=== PATIENT | male | born 1990 | race Caucasian/White ===

== ENCOUNTER 2020-08-10 06:25 | Emergency (ER) | payer MEDICAID, SELFPAY ==
[2020-08-10 07:46] VITALS: BP 125/71; PULSE 71; RESP 18; TEMP 36.6; O2SAT 99; BMI 20.7
--- NOTE | 2020-08-10 08:03 | ED_ITS ---
HPI - Alcohol General Chief Complaint: ETOH/Substance Use Stated Complaint: withdrawals Time Seen by Provider: 08/10/20 08:02 Source: patient Mode of arrival: ambulatory Limitations: no limitations History of Present Illness HPI narrative: Patient been addicted to Percocet 20 mg 3- 4 tablets a day for about 1 year last time it took a tablet was yesterday since evening he been nauseated having chills sweating vomiting patient denied use of any other substance never been to detox before requesting to go to detox patient denied any fever or cough or shortness of breath Related Data Previous Rx's Medication Instructions Recorded clonidine HCl 0.2 mg PO Q8H PRN #8 tab 08/10/20 lorazepam [Ativan] 1 mg PO TID PRN #10 tab 08/10/20 Allergies Allergy/AdvReac Type Severity Reaction Status Date / Time No Known Allergies Allergy Unverified 04/03/20 19:48 [No Known Allergies*] Review of Systems Review of Systems: Constitutional : No Weight loss, No Fever,++Chills ENT/Mouth : No sore throat, No Rhinorrhea Eyes: No Eye Pain, No Swelling Cardiovascular : No Chest Pain, no palpitations Respiratory : No Cough, No Sputum, no shortness of breath Gastrointestinal : ++ Nausea, ++ Vomiting, No Diarrhea, No abdominal Pain, no black stools Genitourinary : No Dysuria, No Urinary Frequency Musculoskeletal : No joint pain, No Myalgias, No Joint Swelling Skin : No Skin Lesions, No rash Neuro : No Weakness, No Numbness, No Dizziness, No Headache Psych : No Anxiety/Panic, No Depression Heme/Lymph: No Bruising, No Lymphadenopathy Endocrine : No Polyuria, No Polydipsia All other systems reviewed and are negative Yes all other systems are reviewed and are negative [facility] Past Medical History Medical History No known health problems Social History Social History Advance Directives: No Advance Directives Information Provided: No Physical Exam Vital Signs: Vital Signs: Last Vital Signs Temp 98 F 08/10/20 07:46 Pulse 76 08/10/20 14:34 Resp 16 08/10/20 14:34 BP 116/72 08/10/20 14:34 Pulse Ox 98 08/10/20 14:34 Body Mass Index 20.7 Appearance: Alert. Oriented X3. In mild distress. Eyes: Pupils equal, round and reactive to light. ENT: Pharynx normal. Neck: Normal inspection. Neck supple. CVS: Normal heart rate and rhythm. Pulses normal. Respiratory: No respiratory distress. Breath sounds normal. Abdomen: Soft and nontender. Bowel sounds are present, no mass palpable, no CVA tenderness Skin: Skin warm and dry. Normal skin color. Normal skin turgor. Extremities: No lower extremity edema. Neuro: Oriented X 3. No motor deficit. No sensory deficit. Course Course Course Narrative: Patient seen by care team advised to follow-up with detox as outpatient patient preferred to go home will call from home patient feel depressed but denies any suicidal ideation and feels safe to go home with family MDM - Alcohol Lab Data Attestation: I reviewed the patient's lab results. Labs: Lab Results 08/10/20 08/10/20 Range/Units 08:24 08:50 Urine Opiates Screen POSITIVE H (Not Detect) Ur Barbiturates Screen Not Detected (Not Detect) Ur Phencyclidine Scrn Not Detected (Not Detect) Ur Amphetamines Screen Not Detected (Not Detect) U Benzodiazepines Scrn Not Detected (Not Detect) Urine Cocaine Screen Not Detected (Not Detect) U Marijuana (THC) Screen POSITIVE H (Not Detect) COVID-19 (YARELY) Negative (Negative) COVID-19 Clin Com See Note Discharge Plan Discharge Clinical Impression: Opiate dependence Qualifiers: Substance use status: in withdrawal Qualified Code(s): F11.23 - Opioid dependence with withdrawal Patient Disposition: Home, Self-Care Instructions: Narcotic Withdrawal (ED), Narcotic Use Disorder (ED) Additional Instructions: Stop using Percocet/opiates. Take Ativan for anxiety and withdrawal symptoms also started on clonidine for 2 days for withdrawal Follow-up with detox as advised Prescriptions: New lorazepam [Ativan] 1 mg tablet 1 mg PO TID PRN (Reason: anxiety) Qty: 10 RF: 0 clonidine HCl 0.2 mg tablet 0.2 mg PO Q8H PRN (Reason: opiate withrawl) Qty: 8 RF: 0
[2020-08-10 08:10] VITALS: BP 128/72
[2020-08-10] MEDS: LORazepam 1 MG TABLET 2 MG PO ×2 (08:10→14:41)
[2020-08-10] MEDS: cloNIDine HCL 0.2 MG TABLET PO (08:10)
[2020-08-10 08:55] LABS: COVID-19 Test Negative (Negative)
[2020-08-10 09:34] LABS: Amphetamine Screen Urine Not Detected (Not Detect); Barbiturates, Urine Not Detected (Not Detect); Benzodiazepines Screen Urine Not Detected (Not Detect); Cannabinoid Screen Urine POSITIVE (Not Detect); Cocaine Screen Urine Not Detected (Not Detect); Opiate Screen Urine POSITIVE (Not Detect); Phencyclidine Screen Urine Not Detected (Not Detect)
[2020-08-10 10:23] VITALS: BP 119/70; PULSE 60; RESP 16; O2SAT 98
--- NOTE | 2020-08-10 11:05 | MHC.CARE ---
CARE Team provided Linnea with information regard detox and services provided in the community for substances abuse services. He mentioned he is not seeking help now, he was provided with the list of services for future reference.
[2020-08-10 14:34] VITALS: BP 116/72; PULSE 76; RESP 16; O2SAT 98
== END 2020-08-10 15:24 | disposition home or self-care (01) ==
PROVIDERS: Emergency Provider Internal Medicine
DX: F11.23 Opioid dependence with withdrawal (principal); F10.10 Alcohol abuse, uncomplicated; Y90.9 Presence of alcohol in blood, level not specified; Z79.899 Other long term (current) drug therapy; Z20.822 Contact with and (suspected) exposure to COVID-19
CPT/HCPCS: 36415; 80307; 87635; 99284

== ENCOUNTER 2020-08-30 17:33 | Emergency (ER) | payer MEDICAID, SELFPAY ==
[2020-08-30 17:53] VITALS: BP 116/68; PULSE 82; RESP 16; TEMP 36.9; O2SAT 96; BMI 25.0
--- NOTE | 2020-08-30 18:12 | ED.PSYCH ---
HPI - Psych General Chief Complaint: Psychiatric Symptoms Stated Complaint: si Time Seen by Provider: 08/30/20 18:09 Source: patient Mode of arrival: ambulatory Limitations: no limitations History of Present Illness HPI Narrative: 30-year-old male presents for substance abuse. Actively withdrawing, is requesting detox. States that he has been trying to get clean for several weeks however his withdrawal symptoms are so severe that he cannot function. When he is feeling his worst he feels suicidal but does not have a plan. He has been using heroin and Percocets on a regular basis. MD complaint: substance abuse Onset (ago): week(s) Duration: constant History of same: Yes Relieving factors: none Context: recent drug abuse Associated psychiatric symptoms: depression Associated symptoms: denies other symptoms Treatments prior to arrival: none Related Data Previous Rx's Medication Instructions Recorded clonidine HCl 0.2 mg PO Q8H PRN #8 tab 08/10/20 lorazepam [Ativan] 1 mg PO TID PRN #10 tab 08/10/20 Allergies Allergy/AdvReac Type Severity Reaction Status Date / Time No Known Allergies Allergy Unverified 04/03/20 19:48 [No Known Allergies*] Review of Systems Review of Systems: Constitutional: No Fever, positive Chills ENT/Mouth: No sore throat, No Rhinorrhea Eyes: No Eye Pain, No Swelling, No Redness Cardiovascular: No Chest Pain, No SOB Respiratory: No Cough, No Sputum Gastrointestinal: Positive Nausea, No Vomiting, No Diarrhea, positive abdominal Pain : No Dysuria, No Hematuria Musculoskeletal: No joint pain, No Myalgias, No Joint Swelling Skin: No Skin Lesions, No rash Neuro: No Weakness, No Numbness, No Loss of Consciousness, No Dizziness, No Headache Psych: Positive Anxiety, positive Depression, positive substance abuse, No SI/HI/AH/VH Heme/Lymph: No Bruising, No Bleeding,No Lymphadenopathy Endocrine: No Polyuria, No Polydipsia PMFSH Past Medical History Attestation statement: The following information was validated with the patient. Source: old records reviewed Medical History No known health problems Social History Social History Smoked in Last 30 Days: No Use of substances other than those prescribed or required for medical reasons: Yes Substance Use Type: Heroin Advance Directives: No Advance Directives Information Provided: Yes Physical Exam Vital Signs: Vital Signs: Last Vital Signs Temp 97.6 F 08/30/20 22:08 Pulse 78 08/30/20 22:08 Resp 16 08/30/20 23:53 BP 101/68 08/30/20 22:08 Pulse Ox 97 08/30/20 22:08 Body Mass Index 25.0 Appearance: Alert. Oriented X3. Moderate distress secondary to withdrawal symptoms. Eyes: Pupils equal, round and reactive to light. ENT: Pharynx normal. Neck: Normal inspection. Neck supple. CVS: Normal heart rate and rhythm. Pulses normal. Respiratory: No respiratory distress. Breath sounds normal. Abdomen: Soft and nontender. Skin: Skin warm and dry. Normal skin color. Normal skin turgor. Extremities: No lower extremity edema. Neuro: No motor deficit. No sensory deficit. Course Course Course Narrative: 30-year-old male presents with active withdrawal symptoms from heroin and Percocet. States that he has been trying to get clean for several weeks however his withdrawal symptoms are so severe that at their worst they make him feel like he wants to . He does not describe a true suicidal ideation, but states his symptoms are so severe that he needs help. Patient is tremors, states to have abdominal pain, is moaning, and is experiencing severe withdrawal symptoms. I do not feel that patient suicidal statement is accurate, but directly related to the suffering of severe withdrawals. Patient is compliant with care, giving blood and urine samples without difficulty, answering all questions with appropriate responses. cross country/track and field coach at bedside, plan is for detox. Patient to be discharged to detox at 2:00 a.m.. Family will be driving him. Patient verbalized understanding of and agrees plan of care discharge to detox facility. MDM - Psych Differential Diagnosis Differential diagnosis: Likely depression, acute anxiety and substance abuse Medical Records Attestation: I reviewed the patient's medical records. Lab Data Attestation: I reviewed the patient's lab results. Result diagrams: 08/30/20 18:26 08/30/20 18:26 Labs: Lab Results 08/30/20 08/30/20 08/30/20 Range/Units 18:26 18:26 18:26 WBC 8.9 (4.8-10.8) X10*3/uL RBC 5.03 (4.60-5.80) X10*6/uL Hgb 14.7 (14.0-18.0) g/dl Hct 44.6 (42-52) % MCV 88.7 (80-98) fL MCH 29.2 (27.0-33.0) pg MCHC 33.0 (31.0-36.0) g/dl RDW 13.2 (11.0-16.0) % Plt Count 201 (160-400) X10*3/uL MPV 10.8 (9.4-12.4) fL Immature Gran % (Auto) 0.2 (0.0-0.4) % Neut % (Auto) 68.7 (45-73) % Lymph % (Auto) 17.9 L (20-40) % [place] % (Auto) 9.2 (2-11) % Eos % (Auto) 3.4 (0-4) % Baso % (Auto) 0.6 (0-2) % Lymph # (Auto) 1.6 (1.2-4.9) X10*3/uL [place] # (Auto) 0.8 (0.1-1.2) X10*3/uL Eos # (Auto) 0.3 (0.0-0.4) X10*3/uL Baso # (Auto) 0.1 (0.0-0.2) X10*3/uL Abs Immat Gran (auto) 0.02 (0.00-0.03) X10*3/uL Absolute Neuts (auto) 6.1 (2.0-8.3) X10*3/uL Absolute Nucleated RBC 0.000 (0.0-0.012) X10*3/uL Nucleated RBC % (auto) 0.0 (0.0-0.2) /100WBC Sodium 140 (135-145) mmol/L Potassium 4.1 (3.3-5.1) mmol/L Chloride 105 (96-108) mmol/L Carbon Dioxide 26 (22-29) mmol/L Anion Gap 13 (12-20) BUN 10 (9-16) mg/dL Creatinine 0.95 (0.5-1.4) mg/dL Estim Creat Clear Calc 98.9 Estimated GFR > 60 Random Glucose 92 (60-115) mg/dL Calcium 9.5 (8.4-10.2) mg/dL Urine Opiates Screen POSITIVE H (Not Detect) Ur Barbiturates Screen Not Detected (Not Detect) Ur Phencyclidine Scrn Not Detected (Not Detect) Ur Amphetamines Screen Not Detected (Not Detect) U Benzodiazepines Scrn Not Detected (Not Detect) Urine Cocaine Screen Not Detected (Not Detect) U Marijuana (THC) Screen POSITIVE H (Not Detect) Ethyl Alcohol mg/dL Coronavirus (PCR) (Negative) Influenza Type A (PCR) (Negative) Influenza Type B (PCR) (Negative) RSV RNA Qual (PCR) (Negative) 08/30/20 08/30/20 Range/Units 18:26 18:26 WBC (4.8-10.8) X10*3/uL RBC (4.60-5.80) X10*6/uL Hgb (14.0-18.0) g/dl Hct (42-52) % MCV (80-98) fL MCH (27.0-33.0) pg MCHC (31.0-36.0) g/dl RDW (11.0-16.0) % Plt Count (160-400) X10*3/uL MPV (9.4-12.4) fL Immature Gran % (Auto) (0.0-0.4) % Neut % (Auto) (45-73) % Lymph % (Auto) (20-40) % [place] % (Auto) (2-11) % Eos % (Auto) (0-4) % Baso % (Auto) (0-2) % Lymph # (Auto) (1.2-4.9) X10*3/uL [place] # (Auto) (0.1-1.2) X10*3/uL Eos # (Auto) (0.0-0.4) X10*3/uL Baso # (Auto) (0.0-0.2) X10*3/uL Abs Immat Gran (auto) (0.00-0.03) X10*3/uL Absolute Neuts (auto) (2.0-8.3) X10*3/uL Absolute Nucleated RBC (0.0-0.012) X10*3/uL Nucleated RBC % (auto) (0.0-0.2) /100WBC Sodium (135-145) mmol/L Potassium (3.3-5.1) mmol/L Chloride (96-108) mmol/L Carbon Dioxide (22-29) mmol/L Anion Gap (12-20) BUN (9-16) mg/dL Creatinine (0.5-1.4) mg/dL Estim Creat Clear Calc Estimated GFR Random Glucose (60-115) mg/dL Calcium (8.4-10.2) mg/dL Urine Opiates Screen (Not Detect) Ur Barbiturates Screen (Not Detect) Ur Phencyclidine Scrn (Not Detect) Ur Amphetamines Screen (Not Detect) U Benzodiazepines Scrn (Not Detect) Urine Cocaine Screen (Not Detect) U Marijuana (THC) Screen (Not Detect) Ethyl Alcohol < 10 mg/dL Coronavirus (PCR) NEGATIVE (Negative) Influenza Type A (PCR) NEGATIVE (Negative) Influenza Type B (PCR) NEGATIVE (Negative) RSV RNA Qual (PCR) NEGATIVE (Negative) Discharge Plan Discharge Clinical Impression: Substance abuse withdrawal Qualifiers: Complication of substance-induced condition: uncomplicated Qualified Code(s): F19.130 - Other psychoactive substance abuse with withdrawal, uncomplicated Patient Disposition: Home, Self-Care Instructions: Opioid Withdrawal (ED), Opioid Use Disorder (ED) Additional Instructions: You are being discharged to detox. Thank you for choosing this emergency department for evaluation. Please follow-up with primary care physician as needed. Return to the emergency department for any new, concerning, or worsening symptoms. Prescriptions: No Action lorazepam [Ativan] 1 mg tablet 1 mg PO TID PRN (Reason: anxiety) Qty: 10 RF: 0 clonidine HCl 0.2 mg tablet 0.2 mg PO Q8H PRN (Reason: opiate withrawl) Qty: 8 RF: 0
[2020-08-30] MEDS: cloNIDine HCL 0.1 MG TABLET PO (18:26)
[2020-08-30] MEDS: Dicyclomine HCl 10 MG CAPSULE 20 MG PO (18:26)
[2020-08-30] MEDS: LORazepam 1 MG TABLET PO (18:26)
[2020-08-30 18:38] LABS: Basophils Absolute Auto 0.1 X10*3/uL (0.0-0.2); Basophils Percent Auto 0.6 % (0-2); Eosinophils Absolute Auto 0.3 X10*3/uL (0.0-0.4); Eosinophils Percent Auto 3.4 % (0-4); Hematocrit 44.6 % (42-52); Hemoglobin 14.7 g/dl (14.0-18.0); Imm Gran Abs Auto 0.02 X10*3/uL (0.00-0.03); Imm Gran Pct Auto 0.2 % (0.0-0.4); Lymphocytes Absolute Auto 1.6 X10*3/uL (1.2-4.9); Lymphocytes Percent Auto 17.9 % (20-40); MANUAL DIFF FLAG NO; Mean Corpuscular Hemoglobin 29.2 pg (27.0-33.0); Mean Corpuscular Volume 88.7 fL (80-98); Mean Platelet Volume 10.8 fL (9.4-12.4); Monocytes Absolute Auto 0.8 X10*3/uL (0.1-1.2); Monocytes Percent Auto 9.2 % (2-11); Neutrophils Absolute Auto 6.1 X10*3/uL (2.0-8.3); Neutrophils Percent Auto 68.7 % (45-73); Platelet Count 201 X10*3/uL (160-400); Red Blood Count 5.03 X10*6/uL (4.60-5.80); Red Cell Distribution Width 13.2 % (11.0-16.0); White Blood Count 8.9 X10*3/uL (4.8-10.8)
--- NOTE | 2020-08-30 18:45 | MHC.RECOVSUP ---
Acute opiate wthdrawal o Current location: [facility] o Identified substance use concern: - Withdrawal - Seeking ATS (detox) - Support ? Intervention: o ATS bed search completed/ ? Plan: o Bed search in progress to [facility] ? Additional information: I was able to speak with pt and he was visibly in withdrawal pain. he requested to go to detox and is willing to go if a bed was available. I made a phone call to [facility] and there was a bed available for 2am to which pt stated that he would be willing to go.I was able to make the nurse aware and all that is needed at this time would be to fax over his vitals and he will be ready to go.
[2020-08-30 18:56] LABS: Ethanol < 10 mg/dL
[2020-08-30 18:57] LABS: Anion Gap 13 (12-20); Blood Urea Nitrogen 10 mg/dL (9-16); Calcium 9.5 mg/dL (8.4-10.2); Carbon Dioxide 26 mmol/L (22-29); Chloride 105 mmol/L (96-108); Creatinine Clr Calc Pharmacy 98.9; Estimated Glomerular Filt Rate > 60; Glucose Random 92 mg/dL (60-115); Potassium 4.1 mmol/L (3.3-5.1); Sodium 140 mmol/L (135-145)
[2020-08-30 19:10] LABS: Amphetamine Screen Urine Not Detected (Not Detect); Barbiturates, Urine Not Detected (Not Detect); Benzodiazepines Screen Urine Not Detected (Not Detect); Cannabinoid Screen Urine POSITIVE (Not Detect); Cocaine Screen Urine Not Detected (Not Detect); Opiate Screen Urine POSITIVE (Not Detect); Phencyclidine Screen Urine Not Detected (Not Detect)
[2020-08-30 19:41] LABS: Influenza A PCR NEGATIVE (Negative); Influenza B PCR NEGATIVE (Negative); Resp Syncy Virus RNA Qual PCR NEGATIVE (Negative); SARS COV2 PCR INHOUSE NEGATIVE (Negative)
[2020-08-30 20:07] VITALS: BP 95/67; PULSE 75; RESP 18; TEMP 36.9; O2SAT 95
--- NOTE | 2020-08-30 20:16 | MHC.RECOVSUP ---
Accepted for detox I was able to fax all documents to [facility] pertaining to pt. I recieved a call back informing that the bed will be available for him for 2am. pt is currently sleeping. he stated that he would have a family member take him for 2am. ? Additional information:
--- NOTE | 2020-08-30 20:58 | PC.NURSE ---
pt asleep at current, no signs of distress, respirations even and unlabored
[2020-08-30 22:08] VITALS: BP 101/68; PULSE 78; RESP 14; TEMP 36.4; O2SAT 97
--- NOTE | 2020-08-30 22:45 | PC.NURSE ---
Pt asleep at current. No signs of distress. Respirations even and unlabored.
--- NOTE | 2020-08-30 23:20 | PC.NURSE ---
This RN resuming care, pt sleeping in bed at this time. Per previous RN, plan to DC to detox @ 0200. Sitter at bedside, contine to monitor.
[2020-08-30 23:30] VITALS: RESP 16
[2020-08-30 23:53] VITALS: RESP 16
[2020-08-31 01:22] VITALS: BP 106/67; PULSE 82; RESP 16
--- NOTE | 2020-08-31 01:24 | PC.NURSE ---
Pt wakes easily to verbal stimuli. Pt provided with clothes from the pod, pt changing in the bathroom. VSS at this time. Pt resting in bed, awaiting ride to detox, states his girlfriend is arriving @ 0130.
--- NOTE | 2020-08-31 01:37 | PC.NURSE ---
This RN calling pts girlfriend Keely, Per pt, she was supposed to arrive @ 0130 for transport to detox by 2 am. Girlfriend not answering phone, this RN leaving a voicemail.
--- NOTE | 2020-08-31 01:50 | PC.NURSE ---
Pt requesting to be medicated with Clonidine and Ativan for body aches due to withdrawal prior to transport to [facility]. Pt denies FABIAN, tremors, N/V, abdominal pain at this time. This RN discussing with MD medicating pt. MD reports due to minimal complaints and low COWS score, to wait until admission at [facility] so they can begin treatment via their protocol. Pt aware and agreeable to plan, awaiting ride to [facility].
== END 2020-08-31 01:57 | disposition home or self-care (01) ==
PROVIDERS: Nurse Practitioner Family; Emergency Provider Emergency Medicine
DX: F11.13 Opioid abuse with withdrawal (principal); F19.130 Other psychoactive substance abuse with withdrawal, uncomplicated; Z20.822 Contact with and (suspected) exposure to COVID-19; F32.9 Major depressive disorder, single episode, unspecified; F41.9 Anxiety disorder, unspecified
CPT/HCPCS: 0241U; 36415; 80048; 80307; 80320; 85025; 99284; 99285

== ENCOUNTER 2021-08-31 15:33 | Emergency (ER) | payer MEDICAID, SELFPAY ==
--- NOTE | ~2021-08-31 | XR_ITS ---
EXAMINATION: XR CHEST CLINICAL INFORMATION: Lung pain COMPARISON: None TECHNIQUE: Frontal view of the chest was obtained. FINDINGS: No significant abnormality is noted involving the heart, lungs, mediastinum, bony thorax or soft tissues. XR/XR chest 1V IMPRESSION: Unremarkable examination.
[2021-08-31 15:45] VITALS: BP 123/83; PULSE 84; RESP 14; TEMP 36.8; O2SAT 99; BMI 25.0
--- NOTE | 2021-08-31 16:08 | ED.GENADULT ---
HPI - General Adult General Chief complaint: Dyspnea Stated complaint: congested Time Seen by Provider: 08/31/21 15:57 Source: patient Mode of arrival: ambulatory Limitations: no limitations History of Present Illness HPI narrative: 31-year-old male presents to the ED for nasal congestion/sinus pain for one week. patient denies any chest pain, lung pain, shortnss of breath, coughing, sore throat, facial trauma, neck stiffness, leg swelling, calf pain, or nasal discharge. Related Data Previous Rx's Medication Instructions Recorded clonidine HCl 0.2 mg tablet 0.2 mg PO Q8H PRN #8 tab 08/10/20 lorazepam 1 mg tablet (Ativan) 1 mg PO TID PRN #10 tab 08/10/20 amoxicillin 875 mg-potassium 1 tab PO Q12H 10 Days #20 tab 08/31/21 clavulanate 125 mg tablet naproxen 500 mg tablet 500 mg PO BID PRN 10 Days #20 tab 08/31/21 triamcinolone acetonide 55 mcg 2 spray INTRANASAL DAILY 7 Days 08/31/21 nasal spray aerosol (Nasacort) #16.9 ml Allergies Allergy/AdvReac Type Severity Reaction Status Date / Time No Known Allergies Allergy Unverified 04/03/20 19:48 [No Known Allergies*] Review of Systems Review of Systems: nasal congestion and sinus maxillary tenderness Yes all other systems are reviewed and are negative [facility] Past Medical History Medical History No known health problems Social History Social History Substance Use Type: Heroin Advance Directives: No Advance Directives Information Provided: No Physical Exam ED Vital Signs: Vital Signs - 24 hr 08/31/21 15:45 Temperature 98.2 F Pulse Rate 84 Respiratory Rate 14 Blood Pressure 123/83 Pulse Oximetry 99 BMI result Body Mass Index 25.0 Const General: cooperative, healthy appearing, comfortable, no acute distress, well developed, alert, awake and Physically active Orientation/consciousness: patient oriented x3 HENMT Head: Yes normal to inspection, Yes No palpable skull fracture present, Yes normocephalic, Yes atraumatic and No abrasion Face and sinus: Yes sinus tenderness Face images: 1. Sinus tenderness on palpation. Negative for ecchymosis or erythema. Negative for crepitus 2. Sinus tenderness on palpation. Negative for ecchymosis or erythema. Negative for crepitus Eyes General: appearance normal, both eyes and all related structures Neck Neck: Yes normal visual inspection, Yes full ROM, Yes no lymphadenopathy, Yes no meningeal signs, Yes trachea midline, Yes supple, No anterior neck swelling and No tender Chest Chest palpation & inspection: normal inspection of the chest and normal palpation of entire chest wall Resp Effort & Inspection: normal respiratory effort and able to speak in complete sentences Auscultation: clear to auscultation bilaterally Cardio Jugular venous distension: no JVD Heart sounds: S1 normal heart sound present and S2 normal heart sound present GI Inspection: Yes normal to inspection and No abdominal wall ecchymosis Palpation (GI): Soft to palpation, not firm, nontender, no guarding and not rigid General: No CVA tenderness and Yes no CVA tenderness Back/Spine/Pelvis Back: no CVA tenderness, No CVA tenderness and No back tenderness Skin General skin exam: no rashes or lesions noted and elasticity normal Neuro General: patient oriented x3, gait normal, no meningeal signs and CN's II-XI intact bilaterally Cranial nerves: Yes CN's II-XII intact bilaterally Extrem General: Yes normal to inspection and Yes full ROM Psych Appearance: grossly normal, well kempt and not disheveled Course Course Course Narrative: History physical exam indicates sinusitis. Recommend to screen was done and patient had COVID swab and chest x-ray ordered. Reevaluation(s) Reevaluation #1: Patient to be sure with Nasacort. Chest x-ray normal. Negative for any active discharge in nares. Time: 16:44 Medical Decision Making [facility] Narrative Medical decision making narrative: Sinusitis Lab Data Labs: Lab Results 08/31/21 Range/Units 15:58 COVID-19 (YARELY) Negative (Negative) COVID-19 Clin Com See Note Discharge Plan Discharge Clinical Impression: Sinusitis Patient Disposition: Home, Self-Care Instructions: Sinusitis (ED) Additional Instructions: Your COVID swab and chest xray is normal. He will be discharged with Nasacort antibiotic for sinusitis. Return to the ED any facial swelling shortness of breath, diffuse headache, worsening nasal pain, profuse nasal discharge, weakness, dizziness, chest pain or any other concerning symptoms. Please follow-up with primary care provider Prescriptions: New triamcinolone acetonide [Nasacort] 55 mcg aerosol,spray 2 spray intranasal DAILY 7 Days Qty: 16.9 0RF Rx Instructions: administer into each nostril amoxicillin-pot clavulanate 875-125 mg tablet 1 tab PO Q12H 10 Days Qty: 20 0RF naproxen 500 mg tablet 500 mg PO BID PRN (Reason: pain) 10 Days Qty: 20 0RF No Action lorazepam [Ativan] 1 mg tablet 1 mg PO TID PRN (Reason: anxiety) Qty: 10 0RF clonidine HCl 0.2 mg tablet 0.2 mg PO Q8H PRN (Reason: opiate withrawl) Qty: 8 0RF Referrals: Lior Huff [Physician] - 2 days (Chronic sinusitis) Stand Alone Forms: Work/School Release Interventions: ED Discharge Assessment Last Done: 08/31/21 16:58 Discharge Date/Time: 08/31/21 16:59 Print Language: Honduran
[2021-08-31 16:25] LABS: COVID-19 Test Negative (Negative); IDNOW Serial# 55D5AD1C
== END 2021-08-31 16:59 | disposition home or self-care (01) ==
PROVIDERS: Emergency Provider Emergency Medicine
DX: J32.9 Chronic sinusitis, unspecified (principal); Z20.822 Contact with and (suspected) exposure to COVID-19
CPT/HCPCS: 71045; 87635; 99282; 99283

== ENCOUNTER 2021-09-24 21:57 | Emergency (ER) | payer MEDICAID, SELFPAY ==
[2021-09-24 22:08] VITALS: BP 108/55; PULSE 93; RESP 16; TEMP 37.4; O2SAT 100; BMI 22.6
--- NOTE | 2021-09-24 22:19 | ED.EYEPROB ---
HPI - Eye Problem General Chief complaint: Eye Problems Stated complaint: left eye itchy swollen Time Seen by Provider: 09/24/21 22:18 Source: patient Mode of arrival: ambulatory Limitations: no limitations History of Present Illness MD chief complaint: foreign body Onset (ago): hour(s) (1pm today) Onset description: sudden Duration: constant Location: left eye Eye Symptoms: foreign body sensation Place: work Mechanism: direct trauma Severity: mild If Pain, Quality: aching Context: trauma Associated symptoms: none Treatments Prior to Arrival: irrigated eye Related Data Previous Rx's Medication Instructions Recorded clonidine HCl 0.2 mg tablet 0.2 mg PO Q8H PRN #8 tab 08/10/20 lorazepam 1 mg tablet (Ativan) 1 mg PO TID PRN #10 tab 08/10/20 amoxicillin 875 mg-potassium 1 tab PO Q12H 10 Days #20 tab 08/31/21 clavulanate 125 mg tablet naproxen 500 mg tablet 500 mg PO BID PRN 10 Days #20 tab 08/31/21 triamcinolone acetonide 55 mcg 2 spray INTRANASAL DAILY 7 Days 08/31/21 nasal spray aerosol (Nasacort) #16.9 ml erythromycin 5 mg/gram (0.5 %) eye 0.5 inch OPHTHALMIC (EYE) BID 5 09/24/21 ointment Days #3.5 g Allergies Allergy/AdvReac Type Severity Reaction Status Date / Time No Known Allergies Allergy Unverified 04/03/20 19:48 [No Known Allergies*] Review of Systems Review of Systems: Constitutional : No Fever, No Chills ENT/Mouth : No sore throat, No Rhinorrhea Eyes: No Eye Pain, No Swelling, No Redness Cardiovascular : No Chest Pain, No SOB Respiratory : No Cough, No Sputum, No Wheezing Gastrointestinal : No Nausea, No Vomiting, No Diarrhea Musculoskeletal : No joint pain, No Myalgias, No Joint Swelling Skin : No Skin Lesions, No rash Neuro : No Weakness, No Numbness, No Dizziness, No Headache PMFSH Past Medical History Medical History No known health problems Social History Social History Substance Use Type: Heroin Advance Directives: No Advance Directives Information Provided: No Physical Exam Vital Signs: Vital Signs: Last Vital Signs Temp 99.3 F 09/24/21 22:08 Pulse 93 09/24/21 22:08 Resp 16 09/24/21 22:08 BP 108/55 L 09/24/21 22:08 Pulse Ox 100 09/24/21 22:08 BMI result Body Mass Index 22.6 Appearance: Alert. Oriented X3. No acute distress. Eyes: Pupils equal, round and reactive to light. NO vision changes. L lateral aspect eye conjunctival sac at corner small piece of dark material non shiny noted - easily removed with q tip see procedure note ENT: Pharynx normal. Neck: Normal inspection. Neck supple. CVS: Pulses normal. Respiratory: No respiratory distress. Skin: Skin warm and dry. Normal skin color. Extremities: No lower extremity edema. Neuro: Oriented X 3. No motor deficit. No sensory deficit. MDM - Eye Problem MDM Narrative Medical decision making narrative: 31 yo male working today wore glasses - here with c/o L eye FB does not wear contacts at this time will stain eye and use benton lamp to find FB vs abrasion (small piece of gravel like material noted in lateral conjunctival sac) on initial exam. No vision changes Procedures Foreign Body Removal Time Out Performed: yes Site: left and other (eye conjunctiva lateral area) Description of foreign body: other (gravel like material ) Sedation/Analgesia: other (tetracaine) Technique: manual removal (removed with qtip, no abrasion seen with benton lamp after removal ) Confirmed by:: direct visualization Complications: none Post-procedure exam: awake, alert Discharge Plan Discharge Clinical Impression: Foreign body in conjunctival sac, left eye, sequela Patient Disposition: Home, Self-Care Instructions: Eye Foreign Body (ED) Additional Instructions: return to ED for any worsening symptoms or concerns Prescriptions: New erythromycin 5 mg/gram (0.5 %) ointment 0.5 inch ophthalmic (eye) BID 5 Days Qty: 3.5 0RF No Action lorazepam [Ativan] 1 mg tablet 1 mg PO TID PRN (Reason: anxiety) Qty: 10 0RF clonidine HCl 0.2 mg tablet 0.2 mg PO Q8H PRN (Reason: opiate withrawl) Qty: 8 0RF triamcinolone acetonide [Nasacort] 55 mcg aerosol,spray 2 spray intranasal DAILY 7 Days Qty: 16.9 0RF Rx Instructions: administer into each nostril amoxicillin-pot clavulanate 875-125 mg tablet 1 tab PO Q12H 10 Days Qty: 20 0RF naproxen 500 mg tablet 500 mg PO BID PRN (Reason: pain) 10 Days Qty: 20 0RF
[2021-09-24] MEDS: Fluorescein Sodium STRIP 1 STRIP EYE-LEFT (22:34)
[2021-09-24] MEDS: Tetracaine HCl/PF 0.5% Oph Sol 4 ML DROPS 3 DROP EYE-LEFT (22:34)
[2021-09-24] MEDS: Erythromycin Base 0.5% Oph Oin 1 GM TUBE 1 CM EYE-LEFT (22:58)
== END 2021-09-24 23:01 | disposition home or self-care (01) ==
PROVIDERS: Emergency Provider Emergency Medicine
DX: T15.12XA Foreign body in conjunctival sac, left eye, initial encounter (principal); X58.XXXA Exposure to other specified factors, initial encounter; Y93.9 Activity, unspecified; Y92.9 Unspecified place or not applicable; Y99.0 Civilian activity done for income or pay
CPT/HCPCS: 99283